=== PATIENT | male | born 1945 | race African-American/Black ===

== ENCOUNTER 2021-03-30 11:54 | Emergency (ER) | payer MEDICARE ==
[2021-03-30 11:58] VITALS: BP 155/55
[2021-03-30] MEDS ORDERED: BUTALB/ACETAMINOPHEN/CAFFEINE TAB PO NR (13:46)
[2021-03-30] MEDS ORDERED: METOCLOPRAMIDE 10 MG/2 ML INJ IV NR (13:46)
[2021-03-30] MEDS ORDERED: methylPREDNISolone Sod Succinate 125 MG/2 ML INJ IV NR (13:46)
--- NOTE | 2021-03-30 13:59 | Emergency Department Report ---
HPI - HPI HPI: 75-year-old [place] male presents to the emergency department with complaint of a 2-week history of left-sided headache. Currently he says that the headache is 8 out of 10 in intensity. Pains are intermittent. He has a history of migraine headaches and this appears consistent but usually does not last this long. He previously was seen by a neurologist, Dr. Medina, but has not been to see him since the pandemic began. He tried some [id number] Tylenol for his symptoms without any relief. He denies any vision change, slurred speech, numbness or paresthesias, focal or lateralizing weakness, fever. <REJI PABLO - Last Filed: 03/30/21 15:45> <ARACELI JENKINS - Last Filed: 03/30/21 18:07> - General Chief Complaint: Headache Time Seen by Provider: 03/30/21 13:45 ED Past Medical Hx <REJI PABLO - Last Filed: 03/30/21 15:45> <ARACELI JENKINS - Last Filed: 03/30/21 18:07> - Medications Home Medications: Home Medications Medication Instructions Recorded Confirmed Last Taken Type Butalb/Acetaminophen/Caffeine 1 each PO BID PRN #5 cap 03/30/21 Unknown Rx [Fioricet 50-300-40 mg CAP] ED Review of Systems ROS: Stated complaint: HEADACHE X 2WKS Other details as noted in HPI Comment: All other systems reviewed and negative Constitutional: denies: chills, fever Eyes: denies: eye pain, vision change ENT: denies: ear pain, throat pain Respiratory: denies: cough, shortness of breath Cardiovascular: denies: chest pain, palpitations Gastrointestinal: denies: abdominal pain, vomiting Genitourinary: denies: dysuria, discharge Musculoskeletal: denies: back pain, arthralgia Skin: denies: rash, lesions Neurological: headache. denies: weakness, numbness, paresthesias, confusion <REJI PABLO - Last Filed: 03/30/21 15:45> ROS: Stated complaint: HEADACHE X 2WKS Other details as noted in HPI <ARACELI JENKINS - Last Filed: 03/30/21 18:07> Physical Exam - Physical Exam Vital Signs: Vital Signs 03/30/21 11:57 Temperature 98 F Pulse Rate 54 L Respiratory 16 Rate Blood Pressure 155/55 [Right] O2 Sat by Pulse 96 Oximetry Physical Exam: GENERAL: The patient is well-developed well-nourished. HENT: Normocephalic. Atraumatic. Patient has moist mucous membranes. EYES: Extraocular motions are intact. No nystagmus. Pupils equal reactive to light bilaterally. NECK: Supple. Trachea is midline. CHEST/LUNGS: Clear to auscultation. There is no respiratory distress noted. HEART/CARDIOVASCULAR: Regular. There is no tachycardia. There is no murmur. ABDOMEN: Abdomen is soft, nontender. Patient has normal bowel sounds. SKIN: Skin is warm and dry. NEURO: The patient is awake, alert, and oriented. The patient is cooperative. The patient has no focal neurologic deficits. Normal speech. No facial asymmetry. Cranial nerves II through XII grossly intact. No pronator drift or dysmetria. MUSCULOSKELETAL: There is no tenderness or deformity. There is no limitation range of motion. <REJI PABLO - Last Filed: 03/30/21 15:45> - Physical Exam Vital Signs: Vital Signs 03/30/21 11:57 Temperature 98 F Pulse Rate 54 L Respiratory 16 Rate Blood Pressure 155/55 [Right] O2 Sat by Pulse 96 Oximetry <ARACELI JENKINS - Last Filed: 03/30/21 18:07> ED Course Vital Signs 03/30/21 11:57 Temperature 98 F Pulse Rate 54 L Respiratory 16 Rate Blood Pressure 155/55 [Right] O2 Sat by Pulse 96 Oximetry <REJI PABLO - Last Filed: 03/30/21 15:45> Vital Signs 03/30/21 11:57 Temperature 98 F Pulse Rate 54 L Respiratory 16 Rate Blood Pressure 155/55 [Right] O2 Sat by Pulse 96 Oximetry - Reevaluation(s) Reevaluation #1: 03/30/21 18:03 On repeat assessment at 5:45 PM, the patient reports that his headache is much improved but he feels slightly more sleepy. CT of the head shows no acute abnormalities. I spoke with the patient's son over the phone who explained everything to the patient. He says that he will arrange for the patient to see his neurologist within the next few days. I will prescribe a very small amount of Fioricet which I have instructed him may cause drowsiness. Return precaution s were explained t and acknowledged by the patient's son who will explain to the patient. <ALICEARACELI - Last Filed: 03/30/21 18:07> ED Medical Decision Making - Lab Data Result diagrams: 03/30/21 13:55 03/30/21 13:55 <REJI PABLO Shantelle - Last Filed: 03/30/21 15:45> - Lab Data Result diagrams: 03/30/21 13:55 03/30/21 13:55 <ALICEARACELI - Last Filed: 03/30/21 18:07> Critical care attestation.: If time is entered above; I have spent that time in minutes in the direct care of this critically ill patient, excluding procedure time. <REJI PABLO Shantelle - Last Filed: 03/30/21 15:45> Critical care attestation.: If time is entered above; I have spent that time in minutes in the direct care of this critically ill patient, excluding procedure time. <ALICEARACELI - Last Filed: 03/30/21 18:07> ED Disposition Is pt being admited?: No <REJI PABLO Shantelle - Last Filed: 03/30/21 15:45> Is pt being admited?: No <ALICEARACELI - Last Filed: 03/30/21 18:07> Clinical Impression: Headache, Hypertension Disposition: HOME / SELF CARE / HOMELESS Condition: Stable Instructions: Recurrent Migraine Headache, Hypertension, Adult, Hypertension (ED) Additional Instructions: Please follow-up with your primary care physician and neurologist in the next few days. You have been prescribed a medication that is sedating and therefore should not be taken prior to driving, working, and responsible for children and in no way should be mixed with alcohol of any quantity. Return to the emergency department with any worsening of your symptoms, new or concerning symptoms not addressed during this current emergency department visit, or with any acute distress. Prescriptions: Butalb/Acetaminophen/Caffeine [Fioricet 50-300-40 mg CAP] 1 each PO BID PRN #5 cap PRN Reason: Headache Referrals: PRIMARY CARE, [Primary Care Provider] - 3-5 Days ONIEL MEDINA MD [Staff Physician] - 3-5 Days
[2021-03-30 14:36] LABS: Basophils % (Auto) 0.5 % (0.0-1.8); Eosinophils # (Auto) 0.1 K/mm3 (0.0-0.4); Eosinophils % (Auto) 1.1 % (0.0-4.3); Lymphocytes # (Auto) 2.3 K/mm3 (1.2-5.4); Lymphocytes % (Auto) 33.1 % (13.4-35.0); Mean Corpuscular HGB Conc 31 % (32-34); Mean Corpuscular Volume 82 fl (84-94); Monocytes # (Auto) 0.7 K/mm3 (0.0-0.8); Monocytes % (Auto) 9.7 % (0.0-7.3); Platelet Count 210 K/mm3 (140-440); Red Blood Count 5.22 M/mm3 (3.65-5.03)
[2021-03-30 14:37] LABS: Hematocrit 42.6 % (35.5-45.6); Hemoglobin 13.2 gm/dl (11.8-15.2)
[2021-03-30 14:50] LABS: Blood Urea Nitrogen 13 mg/dL (9-20); Calcium 9.7 mg/dL (8.4-10.2); Hemolysis Index 7
[2021-03-30 15:15] LABS: BUN/Creatinine Ratio 19
--- NOTE | 2021-03-30 16:37 | Cat Scan Report ---
CT head/brain wo con INDICATION: headache. TECHNIQUE: All CT scans at this location are performed using CT dose reduction for ALARA by means of automated e xposure control. COMPARISON: None available. FINDINGS: There is no evidence of hemorrhage, hydrocephalus, brain edema, or mass effect/mass lesion. There is overall normal brain formation and brain volume for the patient's age. Ventricular and cisternal/sulc al size is normal for age. The included paranasal sinuses and mastoid air cells are clear. The orbits appear unremarkable. IMPRESSION: 1. No acute findings. Signer Name: Jimi Saleem MD Signed: 03/30/2021 4:32 PM Workstation Name: [id number]
[2021-03-30] MEDS ORDERED: KETAMINE 500 MG/5 ML VIAL MDV ONE (18:23)
== END 2021-03-30 18:41 | disposition home or self-care (01) ==
LOC: ED 11:54
DX: G43.909 Migraine, unspecified, not intractable, without status migrainosus (principal); I10 Essential (primary) hypertension
CPT/HCPCS: 36415; 70450; 80048; 85025; 99284; J2765; J2930; J3490